=== PATIENT | male | born 1965 | race African-American/Black ===

== ENCOUNTER 2016-09-16 11:52 | Inpatient (IN) | payer OTHER ==
[2016-09-16 12:25] VITALS: BMI 28.6
--- NOTE | 2016-09-16 12:37 | HP ---
CIWA Score - CIWA Score Nausea/Vomitin-Mild Nausea/No Vomiting Muscle Tremors: 3 Anxiety: 4-Mod. Anxious/Guarded Agitation: 1-Slight > Activity Paroxysmal Sweats: 1-Minimal Palms Moist Orientation: 0-Oriented Tacttile Disturbances: 2-Mild Itch/Numbness/Burn Auditory Disturbances: 2-Mild Harshness/Frighten Visual Disturbances: 2-Mild Sensitivity Headache: 2-Mild CIWA-Ar Total Score: 18 Admission ROS BHS - HPI Chief Complaint: I want a job, I need detox, I need to get clean Allergies/Adverse Reactions: Allergies Allergy/AdvReac Type Severity Reaction Status Date / Time No Known Allergies Allergy Verified 09/16/16 12:31 History of Present Illness: 51 yo black gentleman here for detox from alcohol - first time here, previous detox three years ago at [facility]. No seizures, no black outs. Exam Limitations: Clinical Condition - Ebola screening Have you traveled outside of the country in the last 21 days: No Have you had contact with anyone from an Ebola affected area: No Have you been sick,other than usual withdrawal symptoms: No Do you have a fever: No - Review of Systems Constitutional: Loss of Appetite, Changes in sleep, Weakness, Unexplained wgt Loss EENT: reports: No Symptoms Reported Respiratory: reports: No Symptoms reported Cardiac: reports: No Symptoms Reported GI: reports: Poor Appetite : reports: Frequency Musculoskeletal: reports: No Symptoms Reported Integumentary: reports: Dryness Neuro: reports: Headache Endocrine: reports: No Symptoms Reported Hematology: reports: No Symptoms Reported Psychiatric: reports: Judgement Intact, Mood/Affect Appropiate, Orientated x3, Agitated, Anxious Other Systems: Reviewed and Negative Patient History - Patient Medical History Hx Anemia: No Hx Asthma: No Hx Chronic Obstructive Pulmonary Disease (COPD): No Hx Cancer: No Hx Cardiac Disorders: No Hx Congestive Heart Failure: No Hx Hypertension: No Hx Hypercholesterolemia: No Hx Pacemaker: No HX Cerebrovascular Accident: No Hx Seizures: No Hx Dementia: No Hx Diabetes: No Hx Gastrointestinal Disorders: No Hx Liver Disease: No Hx Genitourinary Disorders: No Hx Sexually Transmitted Disorders: No Hx Renal Disease (ESRD): No Hx Thyroid Disease: No Hx Human Immunodeficiency Virus (HIV): No Hx Hepatitis C: No Hx Depression: No Hx Suicide Attempt: No Hx Bipolar Disorder: No Hx Schizophrenia: No - Patient Surgical History Past Surgical History: No - PPD History Previous Implant?: Yes Documented Results: Negative w/o proof Implanted On Prior [facility] Admission?: No PPD to be Administered?: Yes - Reproductive History Patient is a Female of Child Bearing Age (11 -55 yrs old): No (male) - Smoking Cessation Smoking history: Current some day smoker Have you smoked in the past 12 months: Yes Aproximately how many cigarettes per day: 5 Hx Chewing Tobacco Use: No Initiated information on smoking cessation: Yes 'Breaking Loose' booklet given: 09/16/16 (given on admission to floor) - Substance & Tx. History Hx Alcohol Use: Yes Hx Substance Use: Yes Substance Use Type: Alcohol, Cocaine Hx Substance Use Treatment: Yes (detox) - Substances Abused Alcohol Route: Oral Frequency: Daily Amount used: two six packs of 16oz beers Age of first use: 18 Date of Last Use: 09/15/16 Cocaine Route: Inhalation Frequency: 1-2 times per week Amount used: $50 Age of first use: 18 Date of Last Use: 09/15/16 Family Disease History - Family Disease History Family Disease History: Other: Father ( - renal, alcohol), Mother ( - etoh) Admission Physical Exam S - Vital Signs Vital Signs: Vital Signs - 24 hr 09/16/16 12:24 Temperature 96.3 F L Pulse Rate 86 Respiratory 20 Rate Blood Pressure 126/71 - Physical General Appearance: Yes: Nourished, Appropriately Dressed, Mild Distress HEENTM: Yes: Hearing grossly Normal, Normal ENT Inspection, Normocephalic, Normal Voice, Pharynx Normal Respiratory: Yes: Normal Breath Sounds, No Respiratory Distress Neck: Yes: No masses,lesions,Nodules, Supple, Trachea in good position Breast: Yes: Breast Exam Deferred Cardiology: Yes: Regular Rhythm, Regular Rate Abdominal: Yes: Soft Genitourinary: Yes: Frequency Back: Yes: Normal Inspection Musculoskeletal: Yes: full range of Motion, Gait Steady Extremities: Yes: Normal Inspection, Normal Range of Motion Neurological: Yes: Fully Oriented, Alert, Normal Mood/Affect, Normal Response Integumentary: Yes: Normal Color, Dry, Warm Lymphatic: Yes: Within Normal Limits - Diagnostic (1) Alcohol dependence with uncomplicated withdrawal Current Visit: Yes Status: Chronic (2) Cocaine abuse Current Visit: Yes Status: Chronic (3) Nicotine dependence Current Visit: Yes Status: Chronic Qualifiers: Nicotine product type: cigarettes Cleared for Admission S - Detox or Rehab [facility] Level of Care: Medically Managed Detox Regimen/Protocol: Librium [facility] Breath Alcohol Content Breath Alcohol Content: 0 Urine Drug Screen - Results Drug Screen Negative: No Urine Drug Screen Results: TERRY-Cocaine
[2016-09-16] MEDS ORDERED: diphenhydrAMINE HCL 50 MG CAPSULE PO PRN (12:42)
[2016-09-16] MEDS ORDERED: hydrOXYzine PAMOATE 50 MG CAPSULE (FP) PO PRN (12:42)
[2016-09-16] MEDS ORDERED: NICOTINE POLACRILEX 2 MG GUM BUC PRN (12:42)
[2016-09-16] MEDS ORDERED: P-EPHED 60MG/TRIPROLIDI 2.5MG TABLET PO PRN (12:42)
[2016-09-16] MEDS ORDERED: IBUPROFEN 400 MG TABLET (FP) PO PRN (12:42)
[2016-09-16] MEDS ORDERED: MAGNESIUM CITRATE 300 ML BOTTLE PO PRN (12:42)
[2016-09-16] MEDS ORDERED: chlordiazePOXIDE HCL 25 MG CAPSULE PO ONE (12:42)
[2016-09-16] MEDS ORDERED: MAGNESIUM HYDROX 2400MG/30ML ORAL SUSPENSION 30 ML CUP PO PRN (12:42)
[2016-09-16] MEDS ORDERED: LOPERAMIDE HCL 2 MG CAPSULE PO PRN (12:42)
[2016-09-16] MEDS ORDERED: MENTHOL/PHENOL 1 EACH UD MM PRN (12:42)
[2016-09-16] MEDS ORDERED: chlordiazePOXIDE HCL 25 MG CAPSULE PO PRN (12:42)
[2016-09-16] MEDS ORDERED: MAG HYDROX/AL HYDROX/SIMETH 30 ML UNIT-DOSE CUP PO PRN (12:42)
[2016-09-16] MEDS ORDERED: guaiFENesin/D-METHORPHAN HB 10 ML UNIT-DOSE CUPS PO PRN (12:42)
[2016-09-16] MEDS ORDERED: ACETAMINOPHEN 325 MG TABLET (FP) PO PRN (12:42)
[2016-09-16] MEDS: chlordiazePOXIDE HCL 25 MG CAPSULE PO SCH ×2 (17:40→22:40)
--- NOTE | 2016-09-16 18:07 | CONSULT ---
[facility] Psychiatric Consult - Data Date of interview: 09/16/16 Admission source: [facility] Identifying data: First admission to [facility] for this 51 y/o AA male seeking detox treatment on for alcohol and cocaine dependence.Patient is single, a father of three,domiciled and employed. Substance Abuse History: Smoking Cessation. Smoking history: Current some day smoker. Have you smoked in the past 12 months: Yes. Aproximately how many cigarettes per day: 5. Hx Chewing Tobacco Use: No. Initiated information on smoking cessation: Yes. 'Breaking Loose' booklet given: 09/16/16 (given on admission to floor). - Substance & Tx. History. Hx Alcohol Use: Yes. Hx Substance Use: Yes. Substance Use Type: Alcohol, Cocaine. Hx Substance Use Treatment: Yes (detox). - Substances Abused. Alcohol. Route: Oral. Frequency: Daily. Amount used: two six packs of 16oz beers. Age of first use: 18. Date of Last Use: 09/15/16. Cocaine. Route: Inhalation. Frequency: 1- 2 times per week. Amount used: $50. Age of first use: 18. Date of Last Use: 09/15/16 Medical History: Patient endorses good general health. Psychiatric History: Patient denies. Physical/Sexual Abuse/Trauma History: Patient denies. Additional Comment: Urine Drug Screen Results: TERRY-Cocaine.Noted. Mental Status Exam - Mental Status Exam Alert and Oriented to: Time, Place, Person Cognitive Function: Good Patient Appearance: Well Groomed Mood: Hopeful, Euthymic Affect: Appropriate, Normal Range Patient Behavior: Fatigued, Talkative, Appropriate, Cooperative Speech Pattern: Clear, Appropriate Voice Loudness: Normal Thought Process: Goal Oriented Thought Disorder: Not Present Hallucinations: Denies Suicidal Ideation: Denies Homicidal Ideation: Denies Insight/Judgement: Poor Sleep: Well Appetite: Good Muscle strength/Tone: Normal Gait/Station: Normal Psychiatric Findings - Problem List ([place] 1, 2,3) (1) Alcohol dependence with uncomplicated withdrawal Current Visit: Yes Status: Chronic (2) Nicotine dependence Current Visit: Yes Status: Acute Qualifiers: Nicotine product type: cigarettes (3) Cocaine dependence Current Visit: Yes Status: Acute - Initial Treatment Plan Initial Treatment Plan: Psychoeducation.Detoxification.Observation.
[2016-09-16 19:13] LABS: URINE APPEARANCE CLEAR; URINE BILIRUBIN NEGATIVE (NEGATIVE); URINE BLOOD NEGATIVE (NEGATIVE); URINE COLOR YELLOW; URINE GLUCOSE (UA) 1+ (NEGATIVE); URINE KETONE NEGATIVE (NEGATIVE); URINE LEUK ESTERASE NEGATIVE (NEGATIVE); URINE NITRITE NEGATIVE (NEGATIVE); URINE PROTEIN NEGATIVE (NEGATIVE); URINE UROBILINOGEN NEGATIVE E.U./dl (0.2-1.0)
[2016-09-16] MEDS: THIAMINE HCL 100 MG TABLET (FP) PO SCH (22:42)
[2016-09-17] MEDS: chlordiazePOXIDE HCL 25 MG CAPSULE PO SCH ×4 (05:26→22:23)
[2016-09-17 10:28] LABS: MCH 30.4 pg (25.7-33.7); MEAN CELL VOLUME 92.4 fl (80-96); MEAN PLT VOLUME 9.3 fl (7.5-11.1); PLATELET COUNT 214 K/MM3 (134-434); RDW 13.8 % (11.9-15.9); WHITE BLOOD COUNT 4.9 K/mm3 (4.0-10.0)
[2016-09-17] MEDS: PRENATAL VITAMINS W/ FOLIC ACID TABLET (FP) PO SCH (10:28)
[2016-09-17 10:44] LABS: ALBUMIN 3.1 g/dl (3.4-5.0); ANION GAP 4 (8-16); CALCIUM 8.3 mg/dL (8.5-10.1); CO2 25 mmol/L (21-32); CREATININE 0.9 mg/dL (0.7-1.3); GLUCOSE,RANDOM 96 mg/dL (74-106); SGOT/AST 98 U/L (15-37); SGPT/ALT 119 U/L (12-78)
[2016-09-17 10:46] LABS: ALK PHOS 72 U/L (45-117); BILIRUBIN,TOTAL 0.3 mg/dL (0.2-1.0); TOT PROT 6.4 g/dl (6.4-8.2)
[2016-09-17 11:11] LABS: SICKLE CELL SCREEN NEGATIVE (NEGATIVE)
--- NOTE | 2016-09-17 14:08 | PN ---
S CIWA - CIWA Score Nausea/Vomitin-Mild Nausea/No Vomiting Muscle Tremors: 4-Moderate,w/Arms Extend Anxiety: 4-Mod. Anxious/Guarded Agitation: 4-Moderately Restless Paroxysmal Sweats: No Perspiration Orientation: 0-Oriented Tacttile Disturbances: 0-None Auditory Disturbances: 0-None Visual Disturbances: 0-None Headache: 2-Mild CIWA-Ar Total Score: 15 BHS Progress Note (SOAP) Subjective: Anxiety, restless, interrupted sleep, sweating Objective: 09/17/16 14:06 Last Vital Signs Temp Pulse Resp BP Pulse Ox 97 F L 74 20 127/81 09/17/16 13:27 09/17/16 13:27 09/17/16 13:27 09/17/16 13:27 Laboratory Tests 09/16/16 09/17/16 09/17/16 Unknown 08:00 08:00 WBC 4.9 RBC 4.37 Hgb 13.3 Hct 40.4 MCV 92.4 MCHC 33.0 RDW 13.8 Plt Count 214 MPV 9.3 Sickle Cell Screen Negative Sodium 135 L Potassium 4.1 Chloride 106 Carbon Dioxide 25 Anion Gap 4 L BUN 13 Creatinine 0.9 Creat Clearance w eGFR > 60 Random Glucose 96 Calcium 8.3 L Total Bilirubin 0.3 AST 98 H ALT 119 H Alkaline Phosphatase 72 Total Protein 6.4 Albumin 3.1 L Urine Color Yellow Urine Appearance Clear Urine pH 5.0 Ur Specific [place] 1.028 Urine Protein Negative Urine Glucose (UA) 1+ H Urine Ketones Negative Urine Blood Negative Urine Nitrite Negative Urine Bilirubin Negative Urine Urobilinogen Negative Ur Leukocyte Esterase Negative RPR Titer 09/17/16 08:00 WBC RBC Hgb Hct MCV MCHC RDW Plt Count MPV Sickle Cell Screen Sodium Potassium Chloride Carbon Dioxide Anion Gap BUN Creatinine Creat Clearance w eGFR Random Glucose Calcium Total Bilirubin AST ALT Alkaline Phosphatase Total Protein Albumin Urine Color Urine Appearance Urine pH Ur Specific [place] Urine Protein Urine Glucose (UA) Urine Ketones Urine Blood Urine Nitrite Urine Bilirubin Urine Urobilinogen Ur Leukocyte Esterase RPR Titer Nonreactive Labs noted Assessment: 09/17/16 14:08 Withdrawal symptoms Plan: Continue detox
[2016-09-17] MEDS: THIAMINE HCL 100 MG TABLET (FP) PO SCH (22:23)
[2016-09-18] MEDS: chlordiazePOXIDE HCL 25 MG CAPSULE PO SCH ×2 (05:41→10:20)
[2016-09-18] MEDS: PRENATAL VITAMINS W/ FOLIC ACID TABLET (FP) PO SCH (10:20)
--- NOTE | 2016-09-18 11:48 | PN ---
[facility] CIWA - CIWA Score Nausea/Vomitin Muscle Tremors: 3 Anxiety: 3 Agitation: 2 Paroxysmal Sweats: 1-Minimal Palms Moist Orientation: 0-Oriented Tacttile Disturbances: 1-Very Mild Itch/Numbness Auditory Disturbances: 1-Very Mild Visual Disturbances: 1-Very Mild Sensitivity Headache: 2-Mild CIWA-Ar Total Score: 17 BHS Progress Note (SOAP) Subjective: ALERT,IRRITABLE,ANXIOUS,INTERRUPTED SLEEP,TREMOR Objective: 09/18/16 11:44 Vital Signs Temperature 97.0 F L 09/18/16 09:59 Pulse Rate 86 09/18/16 09:59 Respiratory Rate 18 09/18/16 09:59 Blood Pressure 141/90 09/18/16 09:59 O2 Sat by Pulse Oximetry (%) EKG NSR,INVERTED T IN 2.3.AVF V4 TO V6 NO CHEST PAIN,NO SOB,NO DIZZINESS Laboratory Last Values WBC 4.9 K/mm3 (4.0-10.0) 09/17/16 08:00 RBC 4.37 M/mm3 (4.00-5.60) 09/17/16 08:00 Hgb 13.3 GM/dL (11.7-16.9) 09/17/16 08:00 Hct 40.4 % (35.4-49) 09/17/16 08:00 MCV 92.4 fl (80-96) 09/17/16 08:00 MCHC 33.0 g/dl (32.0-35.9) 09/17/16 08:00 RDW 13.8 % (11.9-15.9) 09/17/16 08:00 Plt Count 214 K/MM3 (134-434) 09/17/16 08:00 MPV 9.3 fl (7.5-11.1) 09/17/16 08:00 Sickle Cell Screen Negative (NEGATIVE) 09/17/16 08:00 Sodium 135 mmol/L (136-145) L 09/17/16 08:00 Potassium 4.1 mmol/L (3.5-5.1) 09/17/16 08:00 Chloride 106 mmol/L (98-107) 09/17/16 08:00 Carbon Dioxide 25 mmol/L (21-32) 09/17/16 08:00 Anion Gap 4 (8-16) L 09/17/16 08:00 BUN 13 mg/dL (7-18) 09/17/16 08:00 Creatinine 0.9 mg/dL (0.7-1.3) 09/17/16 08:00 Creat Clearance w eGFR > 60 (>60) 09/17/16 08:00 Random Glucose 96 mg/dL (74-106) 09/17/16 08:00 Calcium 8.3 mg/dL (8.5-10.1) L 09/17/16 08:00 Total Bilirubin 0.3 mg/dL (0.2-1.0) 09/17/16 08:00 AST 98 U/L (15-37) H 09/17/16 08:00 ALT 119 U/L (12-78) H 09/17/16 08:00 Alkaline Phosphatase 72 U/L (45-117) 09/17/16 08:00 Total Protein 6.4 g/dl (6.4-8.2) 09/17/16 08:00 Albumin 3.1 g/dl (3.4-5.0) L 09/17/16 08:00 Urine Color Yellow 09/16/16 Unknown Urine Appearance Clear 09/16/16 Unknown Urine pH 5.0 (5.0-8.0) 09/16/16 Unknown Ur Specific [place] 1.028 (1.001-1.035) 09/16/16 Unknown Urine Protein Negative (NEGATIVE) 09/16/16 Unknown Urine Glucose (UA) 1+ (NEGATIVE) H 09/16/16 Unknown Urine Ketones Negative (NEGATIVE) 09/16/16 Unknown Urine Blood Negative (NEGATIVE) 09/16/16 Unknown Urine Nitrite Negative (NEGATIVE) 09/16/16 Unknown Urine Bilirubin Negative (NEGATIVE) 09/16/16 Unknown Urine Urobilinogen Negative E.U./dl (0.2-1.0) 09/16/16 Unknown Ur Leukocyte Esterase Negative (NEGATIVE) 09/16/16 Unknown RPR Titer Nonreactive (NONREACTIVE) 09/17/16 08:00 Assessment: 09/18/16 11:47 WITHDRAWAL SYMPTOM Plan: CONTINUE DETOX,D/C TYLENOL,REPEAT ALT,AST,INR IN AM
[2016-09-18] MEDS: chlordiazePOXIDE 5 MG CAPSULE PO SCH ×2 (17:00→22:23)
[2016-09-18] MEDS: THIAMINE HCL 100 MG TABLET (FP) PO SCH (22:23)
[2016-09-19] MEDS: chlordiazePOXIDE 5 MG CAPSULE PO SCH ×2 (05:37→10:28)
[2016-09-19 10:13] LABS: SGOT/AST 102 U/L (15-37); SGPT/ALT 198 U/L (12-78)
--- NOTE | 2016-09-19 10:17 | PN ---
BHS Progress Note (SOAP) Subjective: ALERT,IRRITABLE,INTERRUPTED SLEEP Objective: 09/19/16 10:16 Vital Signs Temperature 96.5 F L 09/19/16 09:37 Pulse Rate 84 09/19/16 09:37 Respiratory Rate 18 09/19/16 09:37 Blood Pressure 138/87 09/19/16 09:37 O2 Sat by Pulse Oximetry (%) Assessment: 09/19/16 10:16 WITHDRAWAL SYPMTOM Plan: CONTINUE DETOX,DISCHARGE IN AM
[2016-09-19 10:26] LABS: INR 0.95 (0.82-1.09); PROTHROMBIN TIME (PATIENT) 10.4 SEC (9.98-11.88)
[2016-09-19] MEDS: PRENATAL VITAMINS W/ FOLIC ACID TABLET (FP) PO SCH (10:28)
[2016-09-19] MEDS: chlordiazePOXIDE HCL 10 MG CAPSULE PO SCH ×2 (17:35→22:21)
[2016-09-19] MEDS: THIAMINE HCL 100 MG TABLET (FP) PO SCH (22:34)
[2016-09-20 06:30] VITALS: BP 124/76; PULSE 82; TEMP 97.1
[2016-09-20] MEDS: chlordiazePOXIDE HCL 10 MG CAPSULE PO SCH (06:39)
--- NOTE | 2016-09-20 08:36 | PN ---
S Progress Note (SOAP) Subjective: ALERT,NO COMPLAINT Objective: 09/20/16 08:35 Vital Signs Temperature 97.1 F L 09/20/16 06:29 Pulse Rate 82 09/20/16 06:29 Respiratory Rate 16 09/20/16 06:29 Blood Pressure 124/76 09/20/16 06:29 O2 Sat by Pulse Oximetry (%) Assessment: 09/20/16 08:35 DETOX COMPLETED,NO WITHDRAWAL SYMPTOM Plan: DISCHARGE TODAY,FOLLOW UP WITH AFTER CARE PROGRAM ARRANGEMENT
--- NOTE | 2016-09-20 08:38 | DS ---
[facility] Detox Discharge Summary Admission Date: 09/16/16 Discharge Date: 09/20/16 - History Present History: Alcohol Dependence, Cocaine Dependence Additional Comments: FOLLOW UP WITH AFTER CARE PROGRAM ARRANGEMENT Pertinent Past History: NICOTINE DEPENDENCE - Physical Exam Results Vital Signs: Vital Signs Temperature 97.1 F L 09/20/16 06:29 Pulse Rate 82 09/20/16 06:29 Respiratory Rate 16 09/20/16 06:29 Blood Pressure 124/76 09/20/16 06:29 O2 Sat by Pulse Oximetry (%) Pertinent Admission Physical Exam Findings: WITHDRAWAL SYMPTOM - Treatment Hospital Course: Detox Protocol Followed, Detoxed Safely, Responded well, Discharged Condition Good Patient has Accepted a Rehab Referral to: DECLINED - Medication Discharge Medications: Ambulatory Orders NK [No Known Home Medication] 09/16/16 - AMA Did Patient Leave Against Medical Advice: No
--- NOTE | 2016-09-20 10:19 | EKG ---
Test Reason : Blood Pressure : / mmHG Vent. Rate : 077 BPM Atrial Rate : 077 BPM P-R Int : 174 ms QRS Dur : 104 ms QT Int : 384 ms P-R-T Axes : 053 067 017 degrees QTc Int : 434 ms NORMAL SINUS RHYTHM WITH SINUS ARRHYTHMIA T WAVE ABNORMALITY, CONSIDER INFEROLATERAL ISCHEMIA ABNORMAL ECG NO PREVIOUS ECGS AVAILABLE Confirmed by ADITYA WHALEY MD ([id number]) on 09/20/2016 10:19:08 AM Referred By: Confirmed By:ADITYA WHALEY MD
== END 2016-09-20 08:55 | disposition home or self-care (01) | DRG 774 ==
LOC: YASAS 11:52 → Y3N 14:11
PROVIDERS: ADMIT Internal Medicine; ATTEND Internal Medicine
PROC: HZ2ZZZZ Detoxification Services for Substance Abuse Treatment (ICD-10-PCS; principal; 2016-09-16)
DX: F10.230 Alcohol dependence with withdrawal, uncomplicated (principal); F14.20 Cocaine dependence, uncomplicated; F17.210 Nicotine dependence, cigarettes, uncomplicated
CPT/HCPCS: 36415; 80053; 81003; 84450; 84460; 85027; 85610; 85660; 86593; 93005; 93010

== ENCOUNTER 2018-09-28 09:33 | Inpatient (IN) | payer OTHER ==
[2018-09-28 09:52] VITALS: BMI 28.1
[2018-09-28] MEDS ORDERED: IBUPROFEN 400 MG TABLET (FP) PO PRN (10:16)
[2018-09-28] MEDS ORDERED: chlordiazePOXIDE HCL 25 MG CAPSULE PO PRN (10:16)
[2018-09-28] MEDS ORDERED: MAG HYDROX/AL HYDROX/SIMETH 30 ML UNIT-DOSE CUP PO PRN (10:16)
[2018-09-28] MEDS ORDERED: ACETAMINOPHEN 325 MG TABLET (FP) PO PRN (10:16)
[2018-09-28] MEDS ORDERED: MAGNESIUM HYDROX 2400MG/30ML ORAL SUSPENSION 30 ML CUP PO PRN (10:16)
[2018-09-28] MEDS ORDERED: guaiFENesin/D-METHORPHAN HB 10 ML UNIT-DOSE CUPS PO PRN (10:16)
[2018-09-28] MEDS ORDERED: P-EPHED 60MG/TRIPROLIDI 2.5MG TABLET PO PRN (10:16)
[2018-09-28] MEDS ORDERED: MENTHOL/PHENOL 1 EACH UD MM PRN (10:16)
[2018-09-28] MEDS ORDERED: MAGNESIUM CITRATE 300 ML BOTTLE PO PRN (10:16)
[2018-09-28] MEDS ORDERED: LOPERAMIDE HCL 2 MG CAPSULE PO PRN (10:16)
--- NOTE | 2018-09-28 10:16 | HP ---
CIWA Score Nausea/Vomitin Muscle Tremors: 4-Moderate,w/Arms Extend Anxiety: 4-Mod. Anxious/Guarded Agitation: 0-Normal Activity Paroxysmal Sweats: No Perspiration Orientation: 0-Oriented Tacttile Disturbances: 0-None Auditory Disturbances: 0-None Visual Disturbances: 1-Very Mild Sensitivity Headache: 2-Mild CIWA-Ar Total Score: 13 - Admission Criteria [facility] Guidelines: Admission for Medically Managed Detox: Requires at least one of the followin. CIWA greater than 12 2. Seizures within the past 24 hours 3. Delirium tremens within the past 24 hours 4. Hallucinations within the past 24 hours 5. Acute intervention needed for co occurring medical disorder 6. Acute intervention needed for co occurring psychiatric disorder 7. Severe withdrawal that cannot be handled at a lower level of care (continued vomiting, continued diarrhea, abnormal vital signs) requiring intravenous medication and/or fluids 8. Patient presents the following: CIWA greater than 12 Admission Criteria Met: Admission criteria met Admission ROS S - [facility] Chief Complaint: I want to be here, I have not money, I'm messing up my life with all the drugs and drinking. Allergies/Adverse Reactions: Allergies Allergy/AdvReac Type Severity Reaction Status Date / Time No Known Allergies Allergy Verified 09/28/18 10:07 History of Present Illness: 53 yo gentleman here for detox from alcohol, also using cocaine. Denies seizures but does have black outs. Last here in 2017 and states he has not had any treatment since leaving here- did well for a while but relapsed several months ago and it got out of control where he can't stop himself. Exam Limitations: Clinical Condition - Ebola screening Have you traveled outside of the country in the last 21 days: No (N) Have you had contact with anyone from an Ebola affected area: No Have you been sick,other than usual withdrawal symptoms: No Do you have a fever: No - Review of Systems Constitutional: Loss of Appetite, Changes in sleep, Weakness EENT: reports: No Symptoms Reported Respiratory: reports: No Symptoms reported Cardiac: reports: No Symptoms Reported GI: reports: Nausea, Poor Appetite, Indigestion : reports: Frequency Musculoskeletal: reports: No Symptoms Reported Integumentary: reports: Dryness Neuro: reports: Headache, Tremors Endocrine: reports: No Symptoms Reported Hematology: reports: No Symptoms Reported Psychiatric: reports: Judgement Intact, Mood/Affect Appropiate, Anxious Other Systems: Reviewed and Negative Patient History - Patient Medical History Hx Anemia: No Hx Asthma: No Hx Chronic Obstructive Pulmonary Disease (COPD): No Hx Cancer: No Hx Cardiac Disorders: No Hx Congestive Heart Failure: No Hx Hypertension: No Hx Hypercholesterolemia: No Hx Pacemaker: No HX Cerebrovascular Accident: No Hx Seizures: No Hx Dementia: No Hx Diabetes: No Hx Gastrointestinal Disorders: No Hx Liver Disease: No Hx Genitourinary Disorders: No Hx Sexually Transmitted Disorders: No Hx Renal Disease (ESRD): No Hx Thyroid Disease: No Hx Human Immunodeficiency Virus (HIV): No Hx Hepatitis C: No Hx Depression: No Hx Suicide Attempt: No Hx Bipolar Disorder: No Hx Schizophrenia: No - Patient Surgical History Past Surgical History: No - PPD History Previous Implant?: Yes Documented Results: Negative w/proof Implanted On Prior [facility] Admission?: Yes Date: 09/18/16 PPD to be Administered?: Yes - Reproductive History Patient is a Female of Child Bearing Age (11 -55 yrs old): No (male) - Smoking Cessation Smoking history: Current some day smoker Have you smoked in the past 12 months: Yes Aproximately how many cigarettes per day: 5 Hx Chewing Tobacco Use: No Initiated information on smoking cessation: Yes 'Breaking Loose' booklet given: 09/28/18 (give on floor) - Substance & Tx. History Hx Alcohol Use: Yes Hx Substance Use: Yes Substance Use Type: Alcohol, Cocaine Hx Substance Use Treatment: Yes (detox) - Substances Abused Alcohol Route: Oral Frequency: Daily Amount used: 3/ 6 PACKS AND 1 PINT Age of first use: 18 Date of Last Use: 09/27/18 Cocaine Route: Smoking Frequency: 3-6 times per week Amount used: $200 Age of first use: 18 Date of Last Use: 09/27/18 Family Disease History - Family Disease History Family Disease History: Other: Father ( - renal, alcohol), Mother ( - etoh), Sister (one - healthy), Son (one - healthy), Daughter (two - healthy) Admission Physical Exam BHS - Vital Signs Vital Signs: Vital Signs - 24 hr 09/28/18 09:49 Temperature 96.9 F L Pulse Rate 92 H Respiratory 19 Rate Blood Pressure 138/84 - Physical General Appearance: Yes: Nourished, Appropriately Dressed, Mild Distress, Tremorous, Anxious HEENTM: Yes: EOMI, Hearing grossly Normal, Normocephalic, Normal Voice, Pharynx Normal, Other (poor dentition, missing teeth) Respiratory: Yes: Normal Breath Sounds, No Respiratory Distress Neck: Yes: No masses,lesions,Nodules, Supple Breast: Yes: Breast Exam Deferred Cardiology: Yes: Regular Rhythm, Regular Rate Abdominal: Yes: Soft Genitourinary: Yes: Frequency Back: Yes: Normal Inspection Musculoskeletal: Yes: full range of Motion, Gait Steady Extremities: Yes: Normal Inspection, Normal Range of Motion, Non-Tender Neurological: Yes: Fully Oriented, Alert, Motor Strength 5/5, Normal Mood/Affect , Normal Response Integumentary: Yes: Normal Color, Dry, Warm Lymphatic: Yes: Within Normal Limits - Diagnostic (1) Alcohol dependence with uncomplicated withdrawal Current Visit: Yes Status: Chronic (2) Cocaine dependence Current Visit: Yes Status: Acute Qualifiers: Substance use status: uncomplicated Qualified Code(s): F14.20 - Cocaine dependence, uncomplicated (3) Nicotine dependence Current Visit: Yes Status: Acute Qualifiers: Nicotine product type: cigarettes Substance use status: uncomplicated Qualified Code(s): F17.210 - Nicotine dependence, cigarettes, uncomplicated Cleared for Admission [facility] - Detox or Rehab [facility] Level of Care: Medically Managed Detox Regimen/Protocol: Librium [facility] Breath Alcohol Content Breath Alcohol Content: 0 Urine Drug Screen - Results Drug Screen Negative: No Urine Drug Screen Results: TERRY-Cocaine
[2018-09-28] MEDS ORDERED: chlordiazePOXIDE HCL 25 MG CAPSULE PO ONE (11:00)
[2018-09-28] MEDS: chlordiazePOXIDE HCL 25 MG CAPSULE PO SCH ×2 (17:36→22:45)
[2018-09-28] MEDS ORDERED: MELATONIN 5 MG TABLETS PO PRN (22:00)
[2018-09-28] MEDS: THIAMINE HCL 100 MG TABLET (FP) PO SCH (22:45)
[2018-09-29] MEDS: chlordiazePOXIDE HCL 25 MG CAPSULE PO SCH ×4 (05:23→22:15)
[2018-09-29] MEDS: PRENATAL VITAMINS W/ FOLIC ACID TABLET (FP) PO SCH (10:32)
[2018-09-29 11:22] LABS: ALBUMIN 3.8 g/dl (3.4-5.0); ALK PHOS 91 U/L (45-117); ANION GAP 10 MMOL/L (8-16); BILIRUBIN,TOTAL 0.5 mg/dL (0.2-1); BLOOD UREA NITROGEN 17 mg/dL (7-18); CALCIUM 8.8 mg/dL (8.5-10.1); CHLORIDE 106 mmol/L (98-107); CO2 23 mmol/L (21-32); CREATININE 1.3 mg/dL (0.55-1.3); GLUCOSE,RANDOM 176 mg/dL (74-106); POTASSIUM 3.6 mmol/L (3.5-5.1); SGOT/AST 41 U/L (15-37); SGPT/ALT 63 U/L (13-61); SODIUM 140 mmol/L (136-145); TOT PROT 7.9 g/dl (6.4-8.2)
[2018-09-29 11:25] LABS: HEMATOCRIT 42.5 % (35.4-49); HEMOGLOBIN 14.4 GM/dL (11.7-16.9); MCH 31.9 pg (25.7-33.7); MCHC 33.8 g/dl (32.0-35.9); MEAN CELL VOLUME 94.3 fl (80-96); MEAN PLT VOLUME 9.8 fl (7.5-11.1); PLATELET COUNT 265 K/MM3 (134-434); RBC 4.51 M/mm3 (4.00-5.60); RDW 14.6 % (11.9-15.9); WHITE BLOOD COUNT 5.6 K/mm3 (4.0-10.0)
--- NOTE | 2018-09-29 15:42 | PN ---
S CIWA - CIWA Score Nausea/Vomitin Muscle Tremors: 4-Moderate,w/Arms Extend Anxiety: 4-Mod. Anxious/Guarded Agitation: 4-Moderately Restless Paroxysmal Sweats: 3 Orientation: 0-Oriented Tacttile Disturbances: 0-None Auditory Disturbances: 0-None Visual Disturbances: 0-None Headache: 0-None Present CIWA-Ar Total Score: 17 BHS Progress Note (SOAP) Subjective: Denies any withdrawal symptoms. Patient is anxious and restless. Objective: 09/29/18 15:39 Last Vital Signs Temp Pulse Resp BP Pulse Ox 97.2 F L 70 18 126/78 09/29/18 14:26 09/29/18 14:26 09/29/18 14:26 09/29/18 14:26 Laboratory Tests 09/29/18 09/29/18 09/29/18 05:50 05:50 05:50 WBC 5.6 RBC 4.51 Hgb 14.4 Hct 42.5 MCV 94.3 MCH 31.9 MCHC 33.8 RDW 14.6 Plt Count 265 D MPV 9.8 Sodium 140 Potassium 3.6 Chloride 106 Carbon Dioxide 23 Anion Gap 10 BUN 17 Creatinine 1.3 Creat Clearance w eGFR 58.20 Random Glucose 176 H Calcium 8.8 Total Bilirubin 0.5 AST 41 H ALT 63 H Alkaline Phosphatase 91 Total Protein 7.9 Albumin 3.8 RPR Titer Nonreactive Labs reviewed: prerenal azotemia, glucose 176 Assessment: 09/29/18 15:40 Withdrawal symptoms Noted with prerenal azotemia and hyperglycemia Plan: Continue detox Prerenal azotemia: encouraged PO water hydration, will repeat BMP Hyperglycemia: patient denies DM; could be r/t withdrawal; repeat fasting glucose
--- NOTE | 2018-09-29 19:40 | EKG ---
Test Reason : Blood Pressure : / mmHG Vent. Rate : 093 BPM Atrial Rate : 093 BPM P-R Int : 162 ms QRS Dur : 098 ms QT Int : 386 ms P-R-T Axes : 071 060 048 degrees QTc Int : 479 ms NORMAL SINUS RHYTHM NORMAL ECG WHEN COMPARED WITH ECG OF 16-SEP-2016 15:39, T WAVE VARIATION Confirmed by YULY BARTH MD ([id number]) on 09/29/2018 7:40:20 PM Referred By: Confirmed By:YULY BARTH MD
[2018-09-29] MEDS: THIAMINE HCL 100 MG TABLET (FP) PO SCH (22:15)
[2018-09-30] MEDS: chlordiazePOXIDE HCL 25 MG CAPSULE PO SCH ×2 (06:51→10:20)
[2018-09-30 10:18] LABS: ANION GAP 6 MMOL/L (8-16); BLOOD UREA NITROGEN 16 mg/dL (7-18); CALCIUM 8.4 mg/dL (8.5-10.1); CHLORIDE 101 mmol/L (98-107); CO2 30 mmol/L (21-32); CREATININE 1.1 mg/dL (0.55-1.3); GLUCOSE,RANDOM 103 mg/dL (74-106); POTASSIUM 3.9 mmol/L (3.5-5.1); SODIUM 138 mmol/L (136-145)
[2018-09-30] MEDS: PRENATAL VITAMINS W/ FOLIC ACID TABLET (FP) PO SCH (10:19)
--- NOTE | 2018-09-30 10:30 | PN ---
S CIWA - CIWA Score Nausea/Vomitin-Mild Nausea/No Vomiting Muscle Tremors: 3 Anxiety: 3 Agitation: 3 Paroxysmal Sweats: 1-Minimal Palms Moist Orientation: 0-Oriented Tacttile Disturbances: 0-None Auditory Disturbances: 0-None Visual Disturbances: 0-None Headache: 1-Very Mild CIWA-Ar Total Score: 12 BHS Progress Note (SOAP) Subjective: tremor sweating restlessness anxiety Objective: 09/30/18 10:31 Vital Signs Temperature 98.4 F 09/30/18 09:05 Pulse Rate 78 09/30/18 09:05 Respiratory Rate 18 09/30/18 09:05 Blood Pressure 123/80 09/30/18 09:05 O2 Sat by Pulse Oximetry (%) Laboratory Last Values WBC 5.6 K/mm3 (4.0-10.0) 09/29/18 05:50 RBC 4.51 M/mm3 (4.00-5.60) 09/29/18 05:50 Hgb 14.4 GM/dL (11.7-16.9) 09/29/18 05:50 Hct 42.5 % (35.4-49) 09/29/18 05:50 MCV 94.3 fl (80-96) 09/29/18 05:50 MCH 31.9 pg (25.7-33.7) 09/29/18 05:50 MCHC 33.8 g/dl (32.0-35.9) 09/29/18 05:50 RDW 14.6 % (11.9-15.9) 09/29/18 05:50 Plt Count 265 K/MM3 (134-434) D 09/29/18 05:50 MPV 9.8 fl (7.5-11.1) 09/29/18 05:50 Sodium 138 mmol/L (136-145) 09/30/18 07:55 Potassium 3.9 mmol/L (3.5-5.1) 09/30/18 07:55 Chloride 101 mmol/L (98-107) 09/30/18 07:55 Carbon Dioxide 30 mmol/L (21-32) 09/30/18 07:55 Anion Gap 6 MMOL/L (8-16) L 09/30/18 07:55 BUN 16 mg/dL (7-18) 09/30/18 07:55 Creatinine 1.1 mg/dL (0.55-1.3) 09/30/18 07:55 Creat Clearance w eGFR > 60 (>60) 09/30/18 07:55 Random Glucose 103 mg/dL (74-106) 09/30/18 07:55 Calcium 8.4 mg/dL (8.5-10.1) L 09/30/18 07:55 Total Bilirubin 0.5 mg/dL (0.2-1) 09/29/18 05:50 AST 41 U/L (15-37) H 09/29/18 05:50 ALT 63 U/L (13-61) H 09/29/18 05:50 Alkaline Phosphatase 91 U/L (45-117) 09/29/18 05:50 Total Protein 7.9 g/dl (6.4-8.2) 09/29/18 05:50 Albumin 3.8 g/dl (3.4-5.0) 09/29/18 05:50 RPR Titer Nonreactive (NONREACTIVE) 09/29/18 05:50 lab noted Assessment: 09/30/18 10:31 withdrawal sx Plan: continue detox
[2018-09-30] MEDS: chlordiazePOXIDE 5 MG CAPSULE PO SCH ×2 (17:17→22:43)
[2018-09-30] MEDS: THIAMINE HCL 100 MG TABLET (FP) PO SCH (22:43)
[2018-10-01] MEDS: chlordiazePOXIDE 5 MG CAPSULE PO SCH ×2 (05:55→10:09)
--- NOTE | 2018-10-01 10:04 | PN ---
[facility] Progress Note (SOAP) Subjective: feeling better less tremor mild sweating social with peers in day room tolerate food and fluid better Objective: 10/01/18 10:02 Vital Signs Temperature 97.0 F L 10/01/18 09:17 Pulse Rate 83 10/01/18 09:17 Respiratory Rate 18 10/01/18 09:17 Blood Pressure 145/90 10/01/18 09:17 O2 Sat by Pulse Oximetry (%) Laboratory Last Values WBC 5.6 K/mm3 (4.0-10.0) 09/29/18 05:50 RBC 4.51 M/mm3 (4.00-5.60) 09/29/18 05:50 Hgb 14.4 GM/dL (11.7-16.9) 09/29/18 05:50 Hct 42.5 % (35.4-49) 09/29/18 05:50 MCV 94.3 fl (80-96) 09/29/18 05:50 MCH 31.9 pg (25.7-33.7) 09/29/18 05:50 MCHC 33.8 g/dl (32.0-35.9) 09/29/18 05:50 RDW 14.6 % (11.9-15.9) 09/29/18 05:50 Plt Count 265 K/MM3 (134-434) D 09/29/18 05:50 MPV 9.8 fl (7.5-11.1) 09/29/18 05:50 Sodium 138 mmol/L (136-145) 09/30/18 07:55 Potassium 3.9 mmol/L (3.5-5.1) 09/30/18 07:55 Chloride 101 mmol/L (98-107) 09/30/18 07:55 Carbon Dioxide 30 mmol/L (21-32) 09/30/18 07:55 Anion Gap 6 MMOL/L (8-16) L 09/30/18 07:55 BUN 16 mg/dL (7-18) 09/30/18 07:55 Creatinine 1.1 mg/dL (0.55-1.3) 09/30/18 07:55 Creat Clearance w eGFR > 60 (>60) 09/30/18 07:55 Random Glucose 103 mg/dL (74-106) 09/30/18 07:55 Calcium 8.4 mg/dL (8.5-10.1) L 09/30/18 07:55 Total Bilirubin 0.5 mg/dL (0.2-1) 09/29/18 05:50 AST 41 U/L (15-37) H 09/29/18 05:50 ALT 63 U/L (13-61) H 09/29/18 05:50 Alkaline Phosphatase 91 U/L (45-117) 09/29/18 05:50 Total Protein 7.9 g/dl (6.4-8.2) 09/29/18 05:50 Albumin 3.8 g/dl (3.4-5.0) 09/29/18 05:50 RPR Titer Nonreactive (NONREACTIVE) 09/29/18 05:50 lab noted Assessment: 10/01/18 10:03 mild withdrawal sx Plan: continue detox
[2018-10-01] MEDS: PRENATAL VITAMINS W/ FOLIC ACID TABLET (FP) PO SCH (10:08)
[2018-10-01] MEDS: LISINOPRIL 5 MG TABLET (FP) PO SCH (11:05)
[2018-10-01] MEDS: chlordiazePOXIDE HCL 10 MG CAPSULE PO SCH ×2 (18:06→22:10)
[2018-10-01] MEDS: THIAMINE HCL 100 MG TABLET (FP) PO SCH (22:10)
[2018-10-02] MEDS: chlordiazePOXIDE HCL 10 MG CAPSULE PO SCH ×2 (07:20→10:15)
[2018-10-02 08:57] VITALS: BP 126/85; PULSE 86; TEMP 98.1
[2018-10-02] MEDS: PRENATAL VITAMINS W/ FOLIC ACID TABLET (FP) PO SCH (10:13)
[2018-10-02] MEDS: LISINOPRIL 5 MG TABLET (FP) PO SCH (10:13)
--- NOTE | 2018-10-02 10:55 | DS ---
[facility] Detox Discharge Summary Admission Date: 09/28/18 Discharge Date: 10/02/18 - History Present History: Alcohol Dependence Additional Comments: 53 years old male admitted on 09/28/18 for alcohol withdrawal stabilization completed detox regimen aftercare [facility] Physical Exam Results Vital Signs: Vital Signs Temperature 98.1 F 10/02/18 08:57 Pulse Rate 86 10/02/18 08:57 Respiratory Rate 20 10/02/18 08:57 Blood Pressure 126/85 10/02/18 08:57 O2 Sat by Pulse Oximetry (%) Pertinent Admission Physical Exam Findings: alcohol withdrawal sx Laboratory Last Values WBC 5.6 K/mm3 (4.0-10.0) 09/29/18 05:50 RBC 4.51 M/mm3 (4.00-5.60) 09/29/18 05:50 Hgb 14.4 GM/dL (11.7-16.9) 09/29/18 05:50 Hct 42.5 % (35.4-49) 09/29/18 05:50 MCV 94.3 fl (80-96) 09/29/18 05:50 MCH 31.9 pg (25.7-33.7) 09/29/18 05:50 MCHC 33.8 g/dl (32.0-35.9) 09/29/18 05:50 RDW 14.6 % (11.9-15.9) 09/29/18 05:50 Plt Count 265 K/MM3 (134-434) D 09/29/18 05:50 MPV 9.8 fl (7.5-11.1) 09/29/18 05:50 Sodium 138 mmol/L (136-145) 09/30/18 07:55 Potassium 3.9 mmol/L (3.5-5.1) 09/30/18 07:55 Chloride 101 mmol/L (98-107) 09/30/18 07:55 Carbon Dioxide 30 mmol/L (21-32) 09/30/18 07:55 Anion Gap 6 MMOL/L (8-16) L 09/30/18 07:55 BUN 16 mg/dL (7-18) 09/30/18 07:55 Creatinine 1.1 mg/dL (0.55-1.3) 09/30/18 07:55 Creat Clearance w eGFR > 60 (>60) 09/30/18 07:55 Random Glucose 103 mg/dL (74-106) 09/30/18 07:55 Calcium 8.4 mg/dL (8.5-10.1) L 09/30/18 07:55 Total Bilirubin 0.5 mg/dL (0.2-1) 09/29/18 05:50 AST 41 U/L (15-37) H 09/29/18 05:50 ALT 63 U/L (13-61) H 09/29/18 05:50 Alkaline Phosphatase 91 U/L (45-117) 09/29/18 05:50 Total Protein 7.9 g/dl (6.4-8.2) 09/29/18 05:50 Albumin 3.8 g/dl (3.4-5.0) 09/29/18 05:50 RPR Titer Nonreactive (NONREACTIVE) 09/29/18 05:50 lab noted - Treatment Hospital Course: Detox Protocol Followed, Detoxed Safely, Responded well, Discharged Condition Good, Rehab Referral Accepted Patient has Accepted a Rehab Referral to: [facility] - Medication Discharge Medications: Ambulatory Orders Lisinopril [Prinivil] 5 mg PO DAILY 10/01/18 Lisinopril [Prinivil] 5 mg PO DAILY #14 tablet 10/02/18 - Diagnosis (1) Hypertension Current Visit: Yes Status: Chronic Qualifiers: Hypertension type: essential hypertension Qualified Code(s): I10 - Essential (primary) hypertension (2) Alcohol dependence with uncomplicated withdrawal Current Visit: Yes Status: Acute (3) Nicotine dependence Current Visit: Yes Status: Acute Qualifiers: Nicotine product type: cigarettes Substance use status: in withdrawal Qualified Code(s): F17.213 - Nicotine dependence, cigarettes, with withdrawal - AMA Did Patient Leave Against Medical Advice: No
== END 2018-10-02 12:35 | disposition other institution (70) | DRG 774 ==
LOC: YASAS 09:33 → Y3N 10:11
PROVIDERS: ADMIT Neuromusculoskeletal Medicine & OMM; ATTEND Neuromusculoskeletal Medicine & OMM
PROC: HZ2ZZZZ Detoxification Services for Substance Abuse Treatment (ICD-10-PCS; principal; 2018-09-28)
DX: F10.230 Alcohol dependence with withdrawal, uncomplicated (principal); F14.20 Cocaine dependence, uncomplicated; F17.213 Nicotine dependence, cigarettes, with withdrawal; I10 Essential (primary) hypertension; R79.89 Other specified abnormal findings of blood chemistry; R73.9 Hyperglycemia, unspecified
CPT/HCPCS: 36415; 80048; 80053; 85027; 86593; 93005; 93010

== ENCOUNTER 2018-10-02 12:46 | Inpatient (IN) | payer OTHER ==
--- NOTE | 2018-10-02 10:57 | HP ---
[facility] Rehab Assess/Revision - Admission History Admitted to Rehab from: [facility] [place] Date of Admission to Rehab: 10/02/18 - Findings Detox History & Physical reviewed: Yes Concur with findings: Yes Comments/Additional Findings: trasnferred from detox to rehab admission as per protocol Inpatient Rehab Admission - Initial Determination Are CD services needed?: Yes Free of communicable disease: Yes Not in need of hospitalization: Yes - Rehab Admission Criteria Previous failed treatment: Yes Poor recovery environment: Yes Comorbidities: Yes Lacks judgement: No Patient is meeting Inpatient Rehab admission criteria:: Yes
[~2018-10-02 12:46] MED LIST: ACETAMINOPHEN 325 MG TABLET (FP) PO PRN; IBUPROFEN 400 MG TABLET (FP) PO PRN; LOPERAMIDE HCL 2 MG CAPSULE PO PRN; MAG HYDROX/AL HYDROX/SIMETH 30 ML UNIT-DOSE CUP PO PRN; MAGNESIUM CITRATE 300 ML BOTTLE PO PRN; MAGNESIUM HYDROX 2400MG/30ML ORAL SUSPENSION 30 ML CUP PO PRN; MENTHOL/PHENOL 1 EACH UD MM PRN; NICOTINE 14 MG/24 HOURS TOPICAL PATCH TD PRN; NICOTINE POLACRILEX 2 MG GUM BUC PRN; P-EPHED 60MG/TRIPROLIDI 2.5MG TABLET PO PRN; guaiFENesin/D-METHORPHAN HB 10 ML UNIT-DOSE CUPS PO PRN
--- NOTE | 2018-10-02 16:51 | HP ---
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 Medical History: Significant for HTN. Psychiatric History: denies Physical/Sexual Abuse/Trauma History: denies Allergies/Adverse Reactions: Allergies Allergy/AdvReac Type Severity Reaction Status Date / Time No Known Allergies Allergy Verified 10/02/18 13:25 Concur with the findings of this exam: Yes - Substance Abuse/Tx History Hx Alcohol Use: Yes (drinking since 18 yo,beers,gin) Hx Substance Use: Yes (cocaine and crack since 19 yo,spending about 100-200 dollars daily) Substance Use Type: Alcohol, Cocaine Hx Substance Use Treatment: Yes (2 years of abstinence longest) Mental Status Exam - Mental Status Exam Alert and Oriented to: Time, Place, Person Cognitive Function: Grossly Intact Patient Appearance: Well Groomed Mood: Euthymic Affect: Appropriate, Mood Congruent, Normal Range Patient Behavior: Cooperative Speech Pattern: Clear Voice Loudness: Normal Thought Process: Goal Oriented Thought Disorder: Not Present Hallucinations: Denies Suicidal Ideation: Denies Homicidal Ideation: Denies Insight/Judgement: Fair Sleep: Well Muscle strength/Tone: Normal Gait/Station: Normal Psychiatric Findings - Problem List ([place] 1, 2,3) (1) Nicotine dependence Current Visit: Yes Status: Chronic Qualifiers: Nicotine product type: cigarettes Substance use status: in withdrawal Qualified Code(s): F17.213 - Nicotine dependence, cigarettes, with withdrawal (2) Cocaine dependence Current Visit: Yes Status: Chronic Qualifiers: Substance use status: uncomplicated Qualified Code(s): F14.20 - Cocaine dependence, uncomplicated (3) Hypertension Current Visit: Yes Status: Chronic Qualifiers: Hypertension type: essential hypertension Qualified Code(s): I10 - Essential (primary) hypertension (4) Alcohol dependence Current Visit: Yes Status: Acute - Initial Treatment Plan Initial Treatment Plan: will monitor progress.
[2018-10-02] MEDS: THIAMINE HCL 100 MG TABLET (FP) PO SCH (21:38)
[2018-10-03] MEDS: PRENATAL VITAMINS W/ FOLIC ACID TABLET (FP) PO SCH (10:28)
[2018-10-03] MEDS: LISINOPRIL 5 MG TABLET (FP) PO SCH (10:29)
[2018-10-03] MEDS: THIAMINE HCL 100 MG TABLET (FP) PO SCH (21:32)
[2018-10-04] MEDS: PRENATAL VITAMINS W/ FOLIC ACID TABLET (FP) PO SCH (10:19)
[2018-10-04] MEDS: LISINOPRIL 5 MG TABLET (FP) PO SCH (10:19)
[2018-10-04] MEDS: THIAMINE HCL 100 MG TABLET (FP) PO SCH (21:35)
[2018-10-04] MEDS: MELATONIN 5 MG TABLETS PO PRN (21:37)
[2018-10-05] MEDS: LISINOPRIL 5 MG TABLET (FP) PO SCH (10:29)
[2018-10-05] MEDS: PRENATAL VITAMINS W/ FOLIC ACID TABLET (FP) PO SCH (10:29)
[2018-10-05] MEDS: THIAMINE HCL 100 MG TABLET (FP) PO SCH (21:28)
[2018-10-06] MEDS: PRENATAL VITAMINS W/ FOLIC ACID TABLET (FP) PO SCH (10:08)
[2018-10-06] MEDS: LISINOPRIL 5 MG TABLET (FP) PO SCH (10:08)
[2018-10-06] MEDS: THIAMINE HCL 100 MG TABLET (FP) PO SCH (21:28)
[2018-10-06] MEDS: MELATONIN 5 MG TABLETS PO PRN (21:29)
[2018-10-07] MEDS: PRENATAL VITAMINS W/ FOLIC ACID TABLET (FP) PO SCH (10:48)
[2018-10-07] MEDS: LISINOPRIL 5 MG TABLET (FP) PO SCH (10:48)
[2018-10-07] MEDS: THIAMINE HCL 100 MG TABLET (FP) PO SCH (21:31)
[2018-10-07] MEDS: MELATONIN 5 MG TABLETS PO PRN (21:32)
[2018-10-08] MEDS: PRENATAL VITAMINS W/ FOLIC ACID TABLET (FP) PO SCH (10:56)
[2018-10-08] MEDS: LISINOPRIL 5 MG TABLET (FP) PO SCH (11:05)
[2018-10-08] MEDS: MELATONIN 5 MG TABLETS PO PRN (21:21)
[2018-10-08] MEDS: THIAMINE HCL 100 MG TABLET (FP) PO SCH (21:21)
[2018-10-09 07:05] VITALS: BP 129/99; PULSE 80; TEMP 98
[2018-10-09] MEDS: PRENATAL VITAMINS W/ FOLIC ACID TABLET (FP) PO SCH (10:37)
[2018-10-09] MEDS: LISINOPRIL 5 MG TABLET (FP) PO SCH (10:37)
--- NOTE | 2018-10-09 15:10 | PN ---
[facility] Progress Note Note: MEDICAL DISCHARGE NOTE: PT SUCCESSFULLY COMPLETED REHAB TREATMENT TODAY. ALERT O X 3. PT WAS REFERRED TO [facility] OPD AFTERCARE. PT REPORTS HE HAS NO PCP BUT WILL FOLLOW UP AT [facility] FOR MEDICAL CONCERNS WHEN NEEDED. COURT[facility] RX FOR LISINOPRIL 5 MG PO DAILY ELECTRONICALLY SENT TO [facility] FOR PT TO PICK UPON DISCHARGE. Vital Signs - 24 hr 10/09/18 10/09/18 10/09/18 00:30 03:30 07:04 Temperature 98.0 F Pulse Rate 80 Respiratory 18 18 18 Rate Blood Pressure 129/99 NAD MEDICALLY STABLE PLAN:FOLLOW AT [facility] RECOMMENDED FOR AFTERCARE.
== END 2018-10-09 10:40 | disposition home or self-care (01) | DRG 772 ==
LOC: YASAS 12:46 → Y5N 12:47
PROVIDERS: ADMIT Psychiatry & Neurology Psychiatry; ATTEND Psychiatry & Neurology Psychiatry
PROC: HZ42ZZZ Group Counseling for Substance Abuse Treatment, Cognitive-Behavioral (ICD-10-PCS; principal; 2018-10-02)
DX: F10.20 Alcohol dependence, uncomplicated (principal); F14.20 Cocaine dependence, uncomplicated; F17.213 Nicotine dependence, cigarettes, with withdrawal; I10 Essential (primary) hypertension